=== PATIENT | female | born 1960 | race African-American/Black ===

== ENCOUNTER → 2018-10-25 | Outpatient (CLI) | payer OTHER ==
[2014-05-24 12:42] VITALS: BP 173/118
[~2018-10-25] MED LIST: CHOL2000 PO; DILT240C2 PO; HYDR12.58 PO; LINZESS290 MCG PO; VENL75CA PO
--- NOTE | 2018-10-25 08:58 | KCIC ---
EXAM: Abdomen sonogram complete. HISTORY: Postprandial pain. TECHNIQUE: Sonographic imaging of the abdomen was performed. COMPARISON: None. FINDINGS: The liver is normal in size. No focal hepatic lesion is seen. The liver parenchyma is slightly echogenic. However, this is not clearly within limits to suggest steatosis. The common bile duct is normal in caliber. The gallbladder wall is normal in thickness. The right kidney measures 8.9 cm [id number] and the left kidney measures 9.1 cm [id number]. There is echogenic renal parenchyma. The pancreas, aorta, inferior vena cava and spleen are partially obscured due to bowel gas. The spleen appears to be normal in size of the aorta is normal in caliber. IMPRESSION: 1. Slightly echogenic liver parenchyma, not within limits to suggest steatosis. No focal hepatic lesion is seen. 2. Mild renal atrophy and echogenic renal parenchyma, the latter which can be seen with medical renal disease. 3. Limited exam due to bowel gas, described above. Electronically signed by: Nery Silva MD (10/25/2018 8:55 AM) [email or web address]
== END | disposition home or self-care (01) ==
LOC: KCIC US 07:54
PROVIDERS: ATTEND Family Medicine
DX: N26.1 Atrophy of kidney (terminal) (principal)
CPT/HCPCS: 76700

== ENCOUNTER → 2019-05-16 | Outpatient (CLI) | payer OTHER ==
[2014-05-24 12:42] VITALS: BP 173/118
[~2019-05-16] MED LIST changes: +AMLO10TA8 PO; +ASPI-630 PO; +DICY20TA3 PO; +LUBI8CAP4 PO; +PROP80CA45 PO; +TOPI50TA38 PO; +VENL150C PO
--- NOTE | 2019-05-16 14:09 | PAIN ---
DATE OF SERVICE: 05/16/2019 INITIAL CONSULTATION FOR PAIN CLINIC CHIEF COMPLAINT: Neck and right upper back and right upper extremity pain. HISTORY OF PRESENT ILLNESS: This is a 59-year-old female who presents with a history of pain in the base of the neck and right upper back and shoulder and right arm for many years, worse since April, when she aggravated it. 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 The patient reports the pain is constant and sharp now, aggravated with activity, raising the right upper extremity, lifting any items at all, even light, less than 5 pounds with her right arm. The patient reports it awakens her from sleep at least twice a night. It does not affect her bowel or bladder control but does affect her ability to walk and work. Especially, the patient tried physical therapy which actually made the pain worse and was unable to complete it secondary to pain. The patient did have x-rays of the cervical spine and thoracic spine showing mild thoracic spondylosis and scoliosis without compression fracture or listhesis. Right shoulder imaging shows normal and cervical plain film shows left foraminal encroachment at C3-C4, posterior facet spurring as well as similar changes at C4-C5 with right foramina evaluation somewhat limited secondary to motion artifact. C7-T1 level also not well visualized secondary to motion artifact. The patient rates her disability rating from 0-10, 10 being the worst, is a 10 with family home responsibilities and occupation, 8 with self-care and 7 with life support activities. The patient reports no loss of motor function, but significant fatigability to right upper extremity described as constant and sharp, stabbing and throbbing at times as well as radiating in the right arm. PAST MEDICAL HISTORY: Significant for: 1. Hypertension. 2. Shortness of breath. 3. Irritable bowel syndrome. 4. Arthritis. PREVIOUS SURGERIES: Include hysterectomy and left wrist surgery. CURRENT MEDICATIONS: Include Effexor, topiramate, Amitiza, aspirin, dicyclomine, amlodipine and Inderal. ALLERGIES: PENICILLIN, BIAXIN, IVANIA INHIBITORS AND TYLENOL. FAMILY HISTORY: Significant for spinal stenosis, hypertension and diabetes. SOCIAL HISTORY: The patient does not drink alcohol, does not smoke, does not use any illegal, illicit or recreational drugs. She is , lives with her spouse, lives locally in [place], [place]. Works as a daycare provider. REVIEW OF SYSTEMS: The patient's review of systems is positive for those items mentioned in the history of present illness. All systems reviewed and otherwise negative. It is complete, full and well documented on the patient's chart. PHYSICAL EXAMINATION: VITAL SIGNS: The patient's blood pressure is 150/104, pulse 56, respirations 18, temperature 97.6 degrees Fahrenheit, height is 5 feet 3 inches, weight is 144 pounds. GENERAL: The patient is awake, alert, oriented, appropriate, very pleasant demeanor. HEENT: Shows normocephalic, atraumatic. Extraocular movements are intact and symmetrical. Oral cavity, mucous membranes moist and pink. Dentition is intact. NECK: Shows anterior throat supple without palpable lymphadenopathy noted. Swallow reflex symmetrical. CHEST: Shows normal on inspection. Breath sounds are clear bilaterally. HEART: Shows S1, S2 clear. No murmurs auscultated. ABDOMEN: Soft, obese, nontender, nondistended. BACK: Shows spine grossly in the midline. Cervical paraspinous muscle shows symmetrical on inspection, with palpation shows some mild tenderness in the inferior aspect of the cervical paraspinous muscles on the right only and into the superior medial trapezius on the right, but without radiation, without trigger points. The patient has full rotational motion of cervical spine, both laterally greater than 45 degrees closer to 90 degrees, right and left lateral rotation as well as full extension, forward flexion without significant pain or discomfort. The patient's upper back shows grossly in the midline. Thoracic spine with some moderate to significant tenderness in the right trapezius musculature, but without specific trigger points. This is true into the suprascapular and infrascapular region on the right as well, but left is nontender. EXTREMITIES: The patient's upper extremities show deep tendon reflexes 2+ in the biceps and triceps tendons. Motor exam is strong with billing coordinator strength rated at 5/5 on the left and 4/5 on the right, but intact bicep and tricep flexion likewise 4/5 on the right and 5/5 on the left. Peripheral pulses are 2+ in radial distribution. No peripheral edema is noted. Shoulder shrug is strong and intact without loss of strength on resistance as well. Has good abduction of her shoulder to 90 degrees without loss of strength on resistance also. SKIN: Shows warm and dry. Good turgor. No edema. No sores, rashes or bruising. IMPRESSION: 1. This is a 59-year-old female with long history of neck and right upper extremity pain as well as right upper back pain, worse over the past year or so. 2. Hypertension. 3. Shortness of breath. 4. Arthritis. 5. Irritable bowel syndrome. PLAN: Options were discussed with the patient including conservative medical management, physical therapies and interventional techniques. She would like to pursue most conservative technique at this time. We discussed trying a Medrol Dosepak as well as Lidoderm patches for the right shoulder and upper back and scapular region. The patient would like to try this first as she has already tried physical therapy without significant improvement and actually worsening of symptoms. We discussed a cervical epidural steroid injection using description as well as anatomical models to describe the procedure. She would like to wait on any interventional technique at this time. We will give her prescriptions with instructions and side effects to be aware of discussed with each. The patient will follow up in approximately 2 weeks as scheduled. NEAL RIVERA MD DR: TAO/will JOB#: [id number] / [id number]
== END | disposition home or self-care (01) ==
LOC: PNCL 09:09
PROVIDERS: ATTEND Anesthesiology
DX: M79.601 Pain in right arm (principal); M54.6 Pain in thoracic spine; M54.2 Cervicalgia; I10 Essential (primary) hypertension; M19.90 Unspecified osteoarthritis, unspecified site; Z98.890 Other specified postprocedural states; Z90.710 Acquired absence of both cervix and uterus
CPT/HCPCS: G0463